=== PATIENT | male | born 1985 | race Caucasian/White ===

== ENCOUNTER → 2020-11-27 09:23 | Outpatient (CLI) | payer OTHER, SELFPAY ==
--- NOTE | 2020-11-27 09:24 | DI.MRI.S_ITS ---
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 COMPARISON: [facility] ([place]), CR, XR HAND RT MIN 3V, 11/20/2020, 11:18. FINDINGS: Image quality: Excellent. Bones: The bones are normally aligned. No fracture or dislocation. Mild edema involving volar aspect of 1st proximal phalangeal base is seen. No discrete fracture line is noted. No other area of abnormal marrow signal. No intra-osseous lesions. First carpometacarpal joint: On sagittal images, the dorsal radial ligament and posterior oblique ligament appear thickened. The intermetacarpal ligament between the 1st and 2nd metacarpal bases also appears intact. On the volar aspect, the deep and superficial layers of the anterior oblique ligament appear intact. First metacarpophalangeal joint: The proper and accessory components of the radial collateral ligament and overlying fibers of the abductor pollicis brevis tendon appear intact. The proper and accessory components of the ulnar collateral ligaments appear thickened with mild adjacent soft tissue edema The aponeurosis of the adductor pollicis muscle also appears normal. The volar plate appears attenuated near its distal insertion with heterogeneous signal. Thenar muscles: The superficial abductor pollicis longus muscle appears normal, with tendon inserting on the radial base of the first proximal phalanx. The opponens pollicis muscle also appears normal, inserting on the first metacarpal shaft. The flexor pollicis brevis muscle appears normal, with tendon inserting on the radial sesamoid and first proximal phalanx. The oblique and transverse heads of the adductor pollicis muscle appear normal, inserting on the ulnar sesamoid and proximal phalanx as part of the adductor aponeurosis. Flexor pollicis longus tendon: Tendon fibers appear intact, coursing between the thenar eminence muscles and the adductor pollicis muscle, and inserting on the volar base of the distal phalanx. The first annular antwon at the level of the first MCP joint appears intact, intimate with the sesamoids. The second annular antwon at the level of interphalangeal joint also appears intact. The oblique annular antwon between the 1st and 2nd annular pulleys appears intact, with ulnar proximal attachment intimate with the adductor aponeurosis. The variable annular antwon also appears intact between the first annular and oblique annular pulleys. Extensor tendons: The extensor pollicis brevis tendon appears intact, coursing radial to the extensor pollicis longus tendon and inserting on the dorsal base of the proximal phalanx, blending with the dorsal plate of the first MCP joint. The extensor pollicis longus tendon appears intact as it inserts on the dorsal base of the distal phalanx. The sagittal band at the level of the first MCP joint appears intact. The abductor pollicis longus tendon slips appear intact at the radial aspect of the proximal phalanx, proximal to the abductor pollicis brevis tendon insertion. Miscellaneous: No ganglion cysts. IMPRESSION: 1. Contusion involving volar aspect of 1st proximal phalangeal base. No fracture or dislocation. No significant joint effusion. 2. Suggestion of chronic sprain/partial-thickness tear involving ulnar collateral ligaments of 1st MCP joint . Radial collateral ligaments of 1st MCP joint are intact. 3. Suggestion of chronic partial thickness tear involving volar plate of 1st MCP joint at its distal insertion. 4. Extensor and flexor tendons are intact. 5. No gross muscle signal abnormality. Dictated by: Danyel Thomas M.D. on 11/27/2020 at 12:13 Approved by: Danyel Thomas M.D. on 11/27/2020 at 14:30
== END ==
PROVIDERS: Family Provider Family Medicine; Referring Provider Family Medicine; Visit Provider Family Medicine
DX: M25.341 Other instability, right hand (principal); S60.011A Contusion of right thumb without damage to nail, initial encounter
CPT/HCPCS: 73218